=== PATIENT | female | born 1995 | race Caucasian/White ===

== ENCOUNTER 2018-05-27 06:03 | Emergency (ER) | payer OTHER, BC ==
[~2018-05-27] VITALS: Ht 154.9 cm; Wt 58.1 kg
[~2018-05-27 06:03] MED LIST: BACTRIM DS TAB1 EACH PO; BIRTH CONTROL; FLEXERIL PO; MACROBID 100 M100 M1 PO; NAPROSYN500 MG PO; NORCO 5-325 TA1 EACH PO; PYRIDIUM200 MG PO; ZANAFLEX4 MG PO; ZOFRAN ODT4 MG PO; ZOLOFT; [UNRECOGNIZED DRUG - REMARK]
[2018-05-27 06:51] VITALS: BP 0/0
[2018-05-27 06:59] LABS: URINE BILIRUBIN NEGATIVE (Negative); URINE BLOOD NEGATIVE (Negative); URINE CLARITY CLOUDY; URINE COLOR STRAW; URINE GLUCOSE-RANDOM NEGATIVE (Negative); URINE KETONES NEGATIVE (Negative); URINE LEUKOCYTES-REFLEX NEGATIVE (Negative); URINE NITRITE-REFLEX NEGATIVE (Negative); URINE PROTEIN NEGATIVE (Negative); URINE SPECIFIC GRAVITY >= 1.030 (1.005-1.030); URINE UROBILINOGEN 0.2 E.U./dl (0.2-1.0)
[2018-05-27 07:16] LABS: MUCUS >6 Heavy strn/LPF (None Seen); SQUAMOUS >10 Many /LPF (0-3)
[2018-05-27 07:17] LABS: AMORPHOUS URATES Many /LPF (None Seen)
[2018-05-27 07:19] LABS: CASTS None Seen /LPF (None Seen)
[2018-05-27 07:20] LABS: URINE RBC 3-10 Few /HPF (0-2); URINE WBC-REFLEX 0-5 Rare /HPF (0-5)
== END 2018-05-27 06:54 | disposition left against medical advice (07) ==
LOC: M.ERS 06:03
PROVIDERS: Emergency Medicine
DX: N93.9 Abnormal uterine and vaginal bleeding, unspecified (principal); G43.909 Migraine, unspecified, not intractable, without status migrainosus; F32.9 Major depressive disorder, single episode, unspecified; K21.9 Gastro-esophageal reflux disease without esophagitis; F17.210 Nicotine dependence, cigarettes, uncomplicated; Z88.1 Allergy status to other antibiotic agents; Z88.8 Allergy status to other drugs, medicaments and biological substances; Z87.440 Personal history of urinary (tract) infections; Z79.899 Other long term (current) drug therapy

== ENCOUNTER 2018-06-06 12:34 | Emergency (ER) | payer OTHER, BC ==
[~2018-06-06] VITALS: Ht 154.9 cm; Wt 59.0 kg
[2018-06-06] MEDS ORDERED: ONDANSETRON HCL4 M2 PO (13:40)
[2018-06-06 13:58] VITALS: BP 114/86
== END 2018-06-06 14:01 | disposition home or self-care (01) ==
LOC: M.ERS 12:34
DX: O26.891 Other specified pregnancy related conditions, first trimester (principal); G43.909 Migraine, unspecified, not intractable, without status migrainosus; O99.331 Smoking (tobacco) complicating pregnancy, first trimester; O99.341 Other mental disorders complicating pregnancy, first trimester; O99.611 Diseases of the digestive system complicating pregnancy, first trimester; Z3A.01 Less than 8 weeks gestation of pregnancy; Z88.1 Allergy status to other antibiotic agents; Z88.8 Allergy status to other drugs, medicaments and biological substances

== ENCOUNTER 2019-01-09 13:50 | Emergency (ER) | payer OTHER, BC ==
[~2019-01-09] VITALS: Ht 154.9 cm; Wt 52.2 kg
[~2019-01-09 13:50] MED LIST changes: +ONDANSETRON HCL4 M2 PO
[2019-01-09 15:30] VITALS: BP 127/85
== END 2019-01-09 15:30 | disposition home or self-care (01) ==
LOC: M.ERS 13:50
DX: O26.891 Other specified pregnancy related conditions, first trimester (principal); M25.562 Pain in left knee; O23.41 Unspecified infection of urinary tract in pregnancy, first trimester; O99.611 Diseases of the digestive system complicating pregnancy, first trimester; O99.341 Other mental disorders complicating pregnancy, first trimester; O99.331 Smoking (tobacco) complicating pregnancy, first trimester; G43.909 Migraine, unspecified, not intractable, without status migrainosus; Z88.1 Allergy status to other antibiotic agents; Z88.8 Allergy status to other drugs, medicaments and biological substances; Z3A.01 Less than 8 weeks gestation of pregnancy

== ENCOUNTER 2019-03-20 14:02 | Emergency (ER) | payer OTHER, BC ==
[~2019-03-20] VITALS: Ht 154.9 cm; Wt 55.3 kg
[2019-03-20 14:45] LABS: URINE BLOOD 2+ (Negative); URINE CLARITY CLEAR; URINE COLOR YELLOW; URINE GLUCOSE-RANDOM NEGATIVE (Negative); URINE KETONES NEGATIVE (Negative); URINE LEUKOCYTES 1+ (Negative); URINE NITRITE NEGATIVE (Negative); URINE PROTEIN 1+ (Negative); URINE SPECIFIC GRAVITY >= 1.030 (1.005-1.030); URINE UROBILINOGEN 0.2 E.U./dl (0.2-1.0)
[2019-03-20 14:47] LABS: AMP/METHAMP POSITIVE (Negative); BARBITURATES Negative (Negative); BENZODIAZEPINES POSITIVE (Negative); COCAINE Negative (Negative); ICTOTEST (BILI CONFIRMATORY) Negative (Negative); METHADONE Negative (Negative); OPIATES Negative (Negative); PCP Negative (Negative); THC POSITIVE (Negative); URINE BILIRUBIN 1+ (Negative)
[2019-03-20 14:48] LABS: HEMATOCRIT 37.9 % (37.0-47.0); HEMOGLOBIN 13.4 gm/dL (12.0-15.0); MCH 31.8 pg (26.0-34.0); MCHC 35.3 g/dL (28.0-37.0); MPV 7.7 fl. (7.2-11.1); RBC 4.21 mil/uL (4.20-5.00); RDW-CV 12.7 % (10.5-14.5); WBC 7.3 thou/uL (4.0-11.0)
[2019-03-20 14:55] LABS: CALCIUM 8.4 mg/dL (8.5-10.1); CREATININE 0.8 mg/dL (0.6-1.3); POTASSIUM 3.6 mmol/L (3.5-5.1)
[2019-03-20 14:57] LABS: CASTS None Seen /LPF (None Seen); CRYSTALS None Seen /LPF (None Seen); SQUAMOUS >10 Many /LPF (0-3); URINE RBC 0-2 Rare /HPF (0-2); URINE WBC 6-15 Few /HPF (0-5)
[2019-03-20 15:06] LABS: ALBUMIN 4.1 g/dL (3.4-5.0); TOTAL BILIRUBIN 0.6 mg/dL (<0.1-1.0)
[2019-03-20 15:09] LABS: SALICYLATE 3.8 mg/dL (2.8-20.0)
[2019-03-20 15:13] LABS: ACETAMINOPHEN < 2 ug/mL (10-30); ALCOHOL < 10 mg/dL (<10)
[2019-03-20 16:43] VITALS: BP 122/77
== END 2019-03-20 16:43 | disposition home or self-care (01) ==
LOC: M.ERS 14:02
PROVIDERS: Personal Emergency Response Attendant
DX: S61.512A Laceration without foreign body of left wrist, initial encounter (principal); F32.9 Major depressive disorder, single episode, unspecified; F17.210 Nicotine dependence, cigarettes, uncomplicated; K21.9 Gastro-esophageal reflux disease without esophagitis; G43.909 Migraine, unspecified, not intractable, without status migrainosus; F41.9 Anxiety disorder, unspecified; Z88.1 Allergy status to other antibiotic agents; X78.1XXA Intentional self-harm by knife, initial encounter; Y92.89 Other specified places as the place of occurrence of the external cause; Y93.89 Activity, other specified; Y99.8 Other external cause status

== ENCOUNTER 2019-08-07 23:54 | Emergency (ER) | payer BC ==
[~2019-08-07] VITALS: Ht 154.9 cm; Wt 53.5 kg
[2019-08-08 01:40] VITALS: BP 145/81
== END 2019-08-08 01:40 | disposition home or self-care (01) ==
LOC: M.ERS 23:54
DX: O26.891 Other specified pregnancy related conditions, first trimester (principal); S51.812A Laceration without foreign body of left forearm, initial encounter; O99.341 Other mental disorders complicating pregnancy, first trimester; O99.611 Diseases of the digestive system complicating pregnancy, first trimester; O99.351 Diseases of the nervous system complicating pregnancy, first trimester; O23.41 Unspecified infection of urinary tract in pregnancy, first trimester; O99.331 Smoking (tobacco) complicating pregnancy, first trimester; Z3A.10 10 weeks gestation of pregnancy; Y08.89XA Assault by other specified means, initial encounter; Y93.89 Activity, other specified; Y92.89 Other specified places as the place of occurrence of the external cause; Y99.8 Other external cause status